=== PATIENT | female | born 1935 | race Caucasian/White ===

== ENCOUNTER 2017-06-17 19:28 | Emergency (ER) | payer MEDICARE, BC ==
--- NOTE | 2017-06-17 19:47 | EDM.PDOC ---
ED HPI GENERAL MEDICAL PROBLEM - General Chief Complaint: Lower Extremity Injury/Pain Stated Complaint: FALL Time Seen by Provider: 06/17/17 19:30 Source of Information: Reports: Patient, EMS History Limitations: Reports: No Limitations - History of Present Illness INITIAL COMMENTS - FREE TEXT/NARRATIVE: 81-year-old female accidentally stepped through a hole in the floor of her home , injuring her right leg. She was stuck there for 5-10 minutes until her son was able to pull her out. He noticed a lot of bruising and injury to the leg and she was unable to bear weight so an ambulance was called. 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 She also has chronic edema. No other injury. Onset: Sudden Duration: Hour(s): (Within the last few hours) Location: Reports: Lower Extremity, Right Severity: Moderate Worsens with: Reports: Other (Weightbearing), Movement Associated Symptoms: Reports: No Other Symptoms right leg Pain Score (Numeric/FACES): 8 - Related Data Allergies Allergy/AdvReac Type Severity Reaction Status Date / Time adhesive Allergy Rash Verified 06/17/17 20:01 Penicillins Allergy Rash Verified 06/17/17 20:01 Sulfa (Sulfonamide Allergy Rash Verified 06/17/17 20:01 Antibiotics) Home Meds: Home Meds Aspirin [[place] Aspirin] 81 mg PO DAILY 11/30/13 [History] Hydrochlorothiazide 25 mg PO DAILY 11/30/13 [History] Insulin Aspart [NovoLOG] 5 units SUBCUT ACBREAKFAST 11/30/13 [History] Lisinopril [Prinivil] 20 mg PO 11/30/13 [History] Simvastatin [Zocor] 20 mg PO BEDTIME 11/30/13 [History] Timolol Maleate [Timoptic 0.5% Ophth Soln] 1 drop EYEBOTH DAILY 11/30/13 [ History] Social & Family History - Tobacco Use Smoking Status *Q: Never Smoker - Alcohol Use Days Per Week of Alcohol Use: 0 - Recreational Drug Use Recreational Drug Use: No Review of Systems - Review of Systems Review Of Systems: See Below Constitutional: Denies: Fever Respiratory: Denies: Shortness of Breath Cardiovascular: Denies: Chest Pain GI/Abdominal: Denies: Abdominal Pain Skin: Reports: Bruising Neurological: Denies: Paresthesia ED EXAM, GENERAL - Physical Exam Exam: See Below Exam Limited By: No Limitations General Appearance: Alert, No Apparent Distress, Other (Patient is fairly comfortable when lying still) Head: Atraumatic Neck: Supple Respiratory/Chest: No Respiratory Distress Extremities: Other (Exam is otherwise limited to the lower extremities. She has a superficial abrasion over the medial aspect of the right leg with some bruising and slight hematoma formation around the back of lower right thigh into the popliteal area. There is very little pain with passive range of motion , no hip discomfort.) Course - Vital Signs Last Recorded V/S: Last Vital Signs Temp 95.8 F 06/17/17 20:17 Pulse 68 06/17/17 23:30 Resp 12 06/17/17 23:30 BP 107/40 L 06/17/17 23:30 Pulse Ox 99 06/17/17 23:30 - Orders/Labs/Meds Orders: Active Orders 24 hr Category Date Time Status Femur Min 2V Rt [CR] Stat Exams 06/17/17 19:31 Taken Head wo Cont [CT] Stat Exams 06/17/17 21:53 Taken Tibia Fibula Rt [CR] Stat Exams 06/17/17 19:30 Taken Labs: Laboratory Tests 06/17/17 06/17/17 Range/Units 21:53 21:53 WBC 14.9 H (4.5-11.0) K/uL RBC 3.75 (3.30-5.50) M/uL Hgb 10.7 L (12.0-15.0) g/dL Hct 34.6 L (36.0-48.0) % MCV 92 (80-98) fL MCH 29 (27-31) pg MCHC 31 L (32-36) % Plt Count 183 (150-400) K/uL Neut % (Auto) 82 H (36-66) % Lymph % (Auto) 10 L (24-44) % [place] % (Auto) 6 (2-6) % Eos % (Auto) 2 (2-4) % Baso % (Auto) 1 (0-1) % Sodium 139 L (140-148) mmol/L Potassium 3.9 (3.6-5.2) mmol/L Chloride 101 (100-108) mmol/L Carbon Dioxide 28 (21-32) mmol/L Anion Gap 13.9 (5.0-14.0) mmol/L BUN 28 H (7-18) mg/dL Creatinine 1.7 H (0.6-1.0) mg/dL Est Cr Clr Drug Dosing 22.79 mL/min Estimated GFR (MDRD) 29 L (>60) Glucose 267 H (74-106) mg/dL Calcium 8.9 (8.5-10.1) mg/dL Total Bilirubin 0.3 (0.2-1.0) mg/dL AST 34 (15-37) U/L ALT 27 (12-78) U/L Alkaline Phosphatase 80 (46-116) U/L Total Protein 6.2 L (6.4-8.2) g/dL Albumin 3.2 L (3.4-5.0) g/dL Globulin 3.0 (2.3-3.5) g/dL Albumin/Globulin Ratio 1.1 L (1.2-2.2) Meds: Medications Discontinued Medications Generic Name Dose Route Start Last Admin Trade Name Freq PRN Reason Stop Dose Admin Hydrocodone Bitart/Acetaminophen 1 tab 06/17/17 20:32 06/17/17 20:51 [place] 325-5 Mg PO 06/17/17 20:33 1 tab ONETIME ONE Administration - Re-Assessments/Exams Free Text/Narrative Re-Assessment/Exam: 06/17/17 20:28 An x-ray of the tib-fib and right femur on the right side were obtained and showed no fracture. The total knee replacement looks to be in place appropriately. Some nonstick dressings were placed over the abrasion and six- inch Kaveh wraps were used to support the lower extremity. The patient will be discharged, we have no beds available for admission so she is going to try for the next few days with the help of her son to ambulate around the house with a walker. She will return if not improving satisfactorily. 06/17/17 23:27 The patient went into the bathroom with assistance prior to being discharged, and had a very intense vasovagal episode where she actually lost consciousness for several minutes. She became very pale and hypotensive. We then moved her back into the room and her blood pressure was only 60 systolic. She also said she was having blurred vision and extreme dizziness. A [id number] glucose was done which was 200. She continued to slowly improve, and a CBC and CMP was drawn as well as a head CT without contrast obtained. The head CT was normal but there was some concerning findings on the CMP, her GFR was only 31 and creatinine 1.6. This was compared with some recent levels drawn in the clinic one month ago, they were similar but much worse than 1 year prior. It appears this patient is having some renal failure from her chronic diabetes which should be assessed as well. We had no beds in our hospital so the hospitalist in [place] was kind enough to accept the patient for observation and stabilization. Departure - Departure Time of Disposition: 00:51 Disposition: Home, Self-Care 01 Condition: Fair Clinical Impression: Leg abrasion, non-infected Contusion of leg, multiple sites Qualifiers: Encounter type: initial encounter Laterality: right Qualified Code(s): S80.11XA - Contusion of right lower leg, initial encounter Syncope Qualifiers: Syncope type: vasovagal syncope Qualified Code(s): R55 - Syncope and collapse - Discharge Information Instructions: Contusion, [id number] Referrals: PCP,None [Primary Care Provider] - Forms: ED Department Discharge Care Plan Goals: Patient will be transferred to [place] for monitoring her vitals, renal function, and pain control for her recent leg injury. - My Orders Last 24 Hours: My Active Orders 06/17/17 19:30 Tibia Fibula Rt [CR] Stat 06/17/17 19:31 Femur Min 2V Rt [CR] Stat 06/17/17 21:53 Head wo Cont [CT] Stat - Assessment/Plan Last 24 Hours: My Active Orders 06/17/17 19:30 Tibia Fibula Rt [CR] Stat 06/17/17 19:31 Femur Min 2V Rt [CR] Stat 06/17/17 21:53 Head wo Cont [CT] Stat
[2017-06-17] MEDS ORDERED: Acetaminophen/HYDROcodone 325-5 MG Tab PO ONE (20:32)
--- NOTE | 2017-06-18 10:19 | CR ---
Mildly limited of the right hip. No evidence for fracture the femur.
--- NOTE | 2017-06-18 10:22 | CR ---
Right TKA. No evidence for fracture.
== END 2017-06-18 00:40 | disposition home or self-care (01) ==
LOC: JP.ED 19:28
DX: S70.11XA Contusion of right thigh, initial encounter (principal); S80.11XA Contusion of right lower leg, initial encounter; R55 Syncope and collapse; Z88.0 Allergy status to penicillin; Z91.09 Other allergy status, other than to drugs and biological substances; Z88.2 Allergy status to sulfonamides; Z79.82 Long term (current) use of aspirin; Z79.4 Long term (current) use of insulin; Z79.899 Other long term (current) drug therapy; W18.09XA Striking against other object with subsequent fall, initial encounter; Y92.009 Unspecified place in unspecified non-institutional (private) residence as the place of occurrence of the external cause
CPT/HCPCS: 36415; 70450; 73552; 73590; 80053; 82962; 85025; 99283; A9270

== ENCOUNTER 2019-10-15 23:16 | Emergency (ER) | payer BC, MEDICARE ==
--- NOTE | 2019-10-15 23:36 | EDM.PDOC ---
ED HPI GENERAL MEDICAL PROBLEM - General Chief Complaint: Diabetic Complaint Stated Complaint: MEDICAL VIA [facility] Time Seen by Provider: 10/15/19 23:27 Source of Information: Reports: Patient, RN Notes Reviewed History Limitations: Reports: No Limitations - History of Present Illness INITIAL COMMENTS - FREE TEXT/NARRATIVE: 84-year-old female presents emergency department today following a fall at home, she states that she believes she might of tripped on the rug fell forward ended up hitting her face right now she is experiencing pain around her nose and in the base of her forehead. She did not lose consciousness. She also admits that she has been having trouble with her metformin she has not taken this medication for 2 weeks and has had poor blood sugar control nose Pain Score (Numeric/FACES): 7 - Related Data Allergies Allergy/AdvReac Type Severity Reaction Status Date / Time adhesive Allergy Rash Verified 10/15/19 23:19 Penicillins Allergy Rash Verified 10/15/19 23:19 Sulfa (Sulfonamide Allergy Rash Verified 10/15/19 23:19 Antibiotics) Home Meds: Home Meds Aspirin [[place] Aspirin] 81 mg PO DAILY 11/30/13 [History] Hydrochlorothiazide 25 mg PO DAILY 11/30/13 [History] Simvastatin [Zocor] 20 mg PO BEDTIME 11/30/13 [History] lisinopriL [Prinivil] 20 mg PO DAILY 11/30/13 [History] timoloL maleate [Timoptic 0.5% Ophth Soln] 1 drop EYEBOTH DAILY 11/30/13 [History] allopurinoL [Zyloprim] 100 mg PO DAILY 10/15/19 [History] metFORMIN HCl [Metformin HCl ER] 500 mg PO BID 10/15/19 [History] Past Medical History HEENT History: Reports: Impaired Vision Cardiovascular History: Reports: High Cholesterol [employer] LE[employer] History: Reports: Musculoskeletal History: Reports: Gout Endocrine/Metabolic History: Reports: Diabetes, Type II, Obesity/BMI 30+ Dermatologic History: Reports: Eczema - Infectious Disease History Infectious Disease History: Reports: Measles - Past Surgical History HEENT Surgical History: Reports: Eye Surgery GI Surgical History: Reports: Appendectomy, Cholecystectomy, Hernia Repair/Other Female Surgical History: Reports: Hysterectomy, Salpingo-Oophorectomy Musculoskeletal Surgical History: Reports: Knee Replacement, Other (See Below) Other Musculoskeletal Surgeries/Procedures:: bilateral knee repalcement Oncologic Surgical History: Reports: Other (See Below) Other Oncologic Surgeries/Procedures: abnormal pap; hystorectomy Social & Family History - Caffeine Use Caffeine Use: Reports: Soda ED ROS GENERAL - Review of Systems Review Of Systems: See Below Constitutional: Reports: No Symptoms HEENT: Reports: Other (Facial pain) Respiratory: Reports: No Symptoms Cardiovascular: Reports: No Symptoms Endocrine: Reports: High Glucose GI/Abdominal: Reports: No Symptoms : Reports: No Symptoms Musculoskeletal: Reports: No Symptoms Skin: Reports: Bruising (Bridge of nose) Neurological: Reports: No Symptoms ED EXAM GENERAL NO PERIP PULSE - Physical Exam Exam: See Below Exam Limited By: No Limitations General Appearance: Alert, WD/WN, No Apparent Distress Nose: Nasal Tenderness Head: Normocephalic, Facial Tenderness Neck: Normal Inspection, Supple, Non-Tender, Full Range of Motion Respiratory/Chest: No Respiratory Distress, Lungs Clear, Normal Breath Sounds, No Accessory Muscle Use, Chest Non-Tender Cardiovascular: Regular Rate, Rhythm, No Murmur GI/Abdominal: Soft, Non-Tender Course - Vital Signs Last Recorded V/S: Last Vital Signs Temp 95.8 F L 10/15/19 23:29 Pulse 79 10/16/19 01:39 Resp 17 10/16/19 01:39 BP 95/41 L 10/16/19 01:39 Pulse Ox 100 10/16/19 01:39 - Orders/Labs/Meds Orders: Active Orders 24 hr Category Date Time Status Bradley Catheter Insertion [Insert Urinary Catheter] [OM. Care 10/16/19 01:30 Ordered PC] Q24H POC Glucose [Blood Glucose Check, Bedside] [RC] ONETIME Care 10/16/19 02:15 Active Urinary Catheter Assessment [RC] ASDIRECTED Care 10/16/19 01:22 Active Chest 1V Frontal [CR] Stat Exams 10/16/19 00:23 Taken CORONAVIRUS COVID-19, ANASTASIIA Stat Lab 10/16/19 01:36 Ordered CULTURE BLOOD [BC] Urgent Lab 10/16/19 00:30 Received CULTURE BLOOD [BC] Urgent Lab 10/16/19 00:35 Received CULTURE URINE [RM] Urgent Lab 10/16/19 00:53 Received Insulin Regular, Human [HumuLIN R] 100 unit Med 10/16/19 01:15 Active Sodium Chloride 0.9% [Normal Saline] 99 ml IV TITRATE Sodium Chloride 0.9% [Normal Saline] 1,000 ml Med 10/16/19 01:15 Active IV ASDIRECTED Sodium Chloride 0.9% [Saline Flush] Med 10/16/19 00:23 Active 10 ml FLUSH ASDIRECTED PRN Vancomycin 1 gm Med 10/16/19 01:00 Active Sodium Chloride 0.9% [Normal Saline] 250 ml IV Q24H Blood Culture x2 Reflex Set [OM.PC] Urgent Oth 10/16/19 00:23 Ordered Saline Lock Insert [OM.PC] Stat Ot 10/16/19 00:23 Ordered Severe Sepsis Onset Time [OM.PC] Stat Ot 10/16/19 00:23 Ordered Medication Orders Vancomycin HCl 1 gm/ Sodium (Chloride) 250 mls @ 150 mls/hr IV Q24H CHRIS Last Admin: 10/16/19 01:41 Dose: 150 mls/hr Documented by: FLORIN Insulin Human Regular 100 unit (/ Sodium Chloride) 100 mls @ 15.989 mls/hr IV TITRATE CHRIS; Protocol Last Admin: 10/16/19 01:18 Dose: 0.15 units/kg/hr, 15.989 mls/hr Documented by: FLORIN Cosigned by: ODILIA Sodium Chloride (Normal Saline) 1,000 mls @ 999 mls/hr IV ASDIRECTED CHRIS Last Admin: 10/16/19 01:14 Dose: 999 mls/hr Documented by: FLORIN Sodium Chloride (Saline Flush) 10 ml FLUSH ASDIRECTED PRN PRN Reason: Keep Vein Open Last Admin: 10/16/19 01:15 Dose: 10 ml Documented by: FLORIN Labs: Laboratory Tests 10/15/19 10/15/19 10/15/19 Range/Units 23:45 23:45 23:45 WBC 10.9 (4.5-11.0) K/uL RBC 4.77 (3.30-5.50) M/uL Hgb 13.2 D (12.0-15.0) g/dL Hct 41.0 (36.0-48.0) % MCV 86 (80-98) fL MCH 28 (27-31) pg MCHC 32 (32-36) % Plt Count 158 (150-400) K/uL Neut % (Auto) 85 H (36-66) % Lymph % (Auto) 7 L (24-44) % [place] % (Auto) 7 H (2-6) % Eos % (Auto) 1 L (2-4) % Baso % (Auto) 1 (0-1) % VBG pH (7.350-7.450) Sodium 120 L (140-148) mmol/L Potassium 4.9 (3.6-5.2) mmol/L Chloride 84 L (100-108) mmol/L Carbon Dioxide 27 (21-32) mmol/L Anion Gap 13.9 (5.0-14.0) mmol/L BUN 54 H D (7-18) mg/dL Creatinine 2.6 H D (0.6-1.0) mg/dL Est Cr Clr Drug Dosing 13.56 mL/min Estimated GFR (MDRD) 18 L (>60) Glucose 1020 H* (74-106) mg/dL Lactic Acid 3.4 H (0.4-2.0) mmol/L Calcium 9.2 (8.5-10.1) mg/dL Total Bilirubin 0.5 D (0.2-1.0) mg/dL AST 23 (15-37) U/L ALT 26 (12-78) U/L Alkaline Phosphatase 127 H (46-116) U/L Total Protein 6.9 (6.4-8.2) g/dL Albumin 3.2 L (3.4-5.0) g/dL Globulin 3.7 H (2.3-3.5) g/dL Albumin/Globulin Ratio 0.9 L (1.2-2.2) Lipase (73-393) U/L Urine Color (YELLOW) Urine Appearance (CLEAR) Urine pH (5.0-8.0) Ur Specific [place] (1.008-1.030) Urine Protein (NEGATIVE) mg/dL Urine Glucose (UA) (NEGATIVE) mg/dL Urine Ketones (NEGATIVE) mg/dL Urine Occult Blood (NEGATIVE) Urine Nitrite (NEGATIVE) Urine Bilirubin (NEGATIVE) Urine Urobilinogen (0.2-1.0) EU/dL Ur Leukocyte Esterase (NEGATIVE) Urine RBC (0-5) Urine WBC (0-5) Ur Epithelial Cells Amorphous Sediment Urine Bacteria Urine Mucus Ketones (NEGATIVE) 10/16/19 10/16/19 10/16/19 Range/Units 00:08 00:23 00:25 WBC (4.5-11.0) K/uL RBC (3.30-5.50) M/uL Hgb (12.0-15.0) g/dL Hct (36.0-48.0) % MCV (80-98) fL MCH (27-31) pg MCHC (32-36) % Plt Count (150-400) K/uL Neut % (Auto) (36-66) % Lymph % (Auto) (24-44) % [place] % (Auto) (2-6) % Eos % (Auto) (2-4) % Baso % (Auto) (0-1) % VBG pH (7.350-7.450) Sodium (140-148) mmol/L Potassium (3.6-5.2) mmol/L Chloride (100-108) mmol/L Carbon Dioxide (21-32) mmol/L Anion Gap (5.0-14.0) mmol/L BUN (7-18) mg/dL Creatinine (0.6-1.0) mg/dL Est Cr Clr Drug Dosing mL/min Estimated GFR (MDRD) (>60) Glucose (74-106) mg/dL Lactic Acid (0.4-2.0) mmol/L Calcium (8.5-10.1) mg/dL Total Bilirubin (0.2-1.0) mg/dL AST (15-37) U/L ALT (12-78) U/L Alkaline Phosphatase (46-116) U/L Total Protein (6.4-8.2) g/dL Albumin (3.4-5.0) g/dL Globulin (2.3-3.5) g/dL Albumin/Globulin Ratio (1.2-2.2) Lipase 765 H (73-393) U/L Urine Color Yellow (YELLOW) Urine Appearance Slightly cloudy A (CLEAR) Urine pH 5.5 (5.0-8.0) Ur Specific [place] 1.010 (1.008-1.030) Urine Protein Negative (NEGATIVE) mg/dL Urine Glucose (UA) 500 H (NEGATIVE) mg/dL Urine Ketones Negative (NEGATIVE) mg/dL Urine Occult Blood Small H (NEGATIVE) Urine Nitrite Positive H (NEGATIVE) Urine Bilirubin Negative (NEGATIVE) Urine Urobilinogen 0.2 (0.2-1.0) EU/dL Ur Leukocyte Esterase Trace H (NEGATIVE) Urine RBC 0-5 (0-5) Urine WBC 50-75 H (0-5) Ur Epithelial Cells Few Amorphous Sediment Not seen Urine Bacteria Many Urine Mucus Not seen Ketones Negative (NEGATIVE) 10/16/19 Range/Units 00:40 WBC (4.5-11.0) K/uL RBC (3.30-5.50) M/uL Hgb (12.0-15.0) g/dL Hct (36.0-48.0) % MCV (80-98) fL MCH (27-31) pg MCHC (32-36) % Plt Count (150-400) K/uL Neut % (Auto) (36-66) % Lymph % (Auto) (24-44) % [place] % (Auto) (2-6) % Eos % (Auto) (2-4) % Baso % (Auto) (0-1) % VBG pH 7.392 (7.350-7.450) Sodium (140-148) mmol/L Potassium (3.6-5.2) mmol/L Chloride (100-108) mmol/L Carbon Dioxide (21-32) mmol/L Anion Gap (5.0-14.0) mmol/L BUN (7-18) mg/dL Creatinine (0.6-1.0) mg/dL Est Cr Clr Drug Dosing mL/min Estimated GFR (MDRD) (>60) Glucose (74-106) mg/dL Lactic Acid (0.4-2.0) mmol/L Calcium (8.5-10.1) mg/dL Total Bilirubin (0.2-1.0) mg/dL AST (15-37) U/L ALT (12-78) U/L Alkaline Phosphatase (46-116) U/L Total Protein (6.4-8.2) g/dL Albumin (3.4-5.0) g/dL Globulin (2.3-3.5) g/dL Albumin/Globulin Ratio (1.2-2.2) Lipase (73-393) U/L Urine Color (YELLOW) Urine Appearance (CLEAR) Urine pH (5.0-8.0) Ur Specific [place] (1.008-1.030) Urine Protein (NEGATIVE) mg/dL Urine Glucose (UA) (NEGATIVE) mg/dL Urine Ketones (NEGATIVE) mg/dL Urine Occult Blood (NEGATIVE) Urine Nitrite (NEGATIVE) Urine Bilirubin (NEGATIVE) Urine Urobilinogen (0.2-1.0) EU/dL Ur Leukocyte Esterase (NEGATIVE) Urine RBC (0-5) Urine WBC (0-5) Ur Epithelial Cells Amorphous Sediment Urine Bacteria Urine Mucus Ketones (NEGATIVE) Meds: Medications Generic Name Dose Route Start Last Admin Trade Name Elke PRN Reason Stop Dose Admin Vancomycin HCl 1 gm/ Sodium 250 mls @ 150 mls/hr 10/16/19 01:00 10/16/19 01:41 Chloride IV 150 mls/hr Q24H CHRIS Administration Insulin Human Regular 100 unit 100 mls @ 15.989 mls/hr 10/16/19 01:15 10/16/19 01:18 / Sodium Chloride IV 0.15 units/kg/hr TITRATE CHRIS 15.989 mls/hr Administration Protocol 0.15 UNITS/KG/HR Sodium Chloride 1,000 mls @ 999 mls/hr 10/16/19 01:15 10/16/19 01:14 Normal Saline IV 999 mls/hr ASDIRECTED CHRIS Administration Sodium Chloride 10 ml 10/16/19 00:23 10/16/19 01:15 Saline Flush FLUSH 10 ml ASDIRECTED PRN Administration Keep Vein Open Discontinued Medications Generic Name Dose Route Start Last Admin Trade Name Elke PRN Reason Stop Dose Admin Ceftriaxone Sodium 1 gm/ 50 mls @ 100 mls/hr 10/16/19 00:23 10/16/19 00:59 Sodium Chloride IV 10/16/19 00:52 100 mls/hr STAT ONE Administration Lactated Ringer's 1,000 mls @ 999 mls/hr 10/16/19 00:51 10/16/19 00:59 Ringers, Lactated IV 10/16/19 01:51 999 mls/hr BOLUS ONE Administration Departure - Departure Time of Disposition: 02:08 Disposition: DC/Tfer to Acute Hospital 02 Condition: Fair Clinical Impression: Non-ketotic hypoglycemia - Discharge Information Referrals: PCP,None [Primary Care Provider] - Forms: ED Department Discharge Critical Care Note - Critical Care Note Total Time (mins): 20 Sepsis Event Note (ED) - Evaluation Sepsis Screening Result: No Definite Risk - Focused Exam Vital Signs: Vital Signs Temp Pulse Resp BP Pulse Ox 10/16/19 01:39 79 17 95/41 L 100 10/16/19 01:06 76 14 83/43 L 99 10/16/19 00:50 81 18 82/36 L 98 10/16/19 00:00 81 20 130/61 100 10/15/19 23:29 95.8 F L 77 14 115/51 L 97 10/15/19 23:28 95.8 F L 77 14 115/51 L 97 - My Orders Last 24 Hours: My Active Orders 10/16/19 00:23 Chest 1V Frontal [CR] Stat Sodium Chloride 0.9% [Saline Flush] 10 ml FLUSH ASDIRECTED PRN Blood Culture x2 Reflex Set [OM.PC] Urgent Saline Lock Insert [OM.PC] Stat Severe Sepsis Onset Time [OM.PC] Stat 10/16/19 00:30 CULTURE BLOOD [BC] Urgent 10/16/19 00:35 CULTURE BLOOD [BC] Urgent 10/16/19 00:53 CULTURE URINE [RM] Urgent 10/16/19 01:00 Vancomycin 1 gm Sodium Chloride 0.9% [Normal Saline] 250 ml IV Q24H 10/16/19 01:15 Insulin Regular, Human [HumuLIN R] 100 unit Sodium Chloride 0.9% [Normal Saline] 99 ml IV TITRATE Sodium Chloride 0.9% [Normal Saline] 1,000 ml IV ASDIRECTED 10/16/19 01:22 Urinary Catheter Assessment [RC] ASDIRECTED 10/16/19 01:30 Bradley Catheter Insertion [Insert Urinary Catheter] [OM.PC] Q24H 10/16/19 01:36 CORONAVIRUS COVID-19, ANASTASIIA Stat 10/16/19 02:15 POC Glucose [Blood Glucose Check, Bedside] [RC] ONETIME - Assessment/Plan Last 24 Hours: My Active Orders 10/16/19 00:23 Chest 1V Frontal [CR] Stat Sodium Chloride 0.9% [Saline Flush] 10 ml FLUSH ASDIRECTED PRN Blood Culture x2 Reflex Set [OM.PC] Urgent Saline Lock Insert [OM.PC] Stat Severe Sepsis Onset Time [OM.PC] Stat 10/16/19 00:30 CULTURE BLOOD [BC] Urgent 10/16/19 00:35 CULTURE BLOOD [BC] Urgent 10/16/19 00:53 CULTURE URINE [RM] Urgent 10/16/19 01:00 Vancomycin 1 gm Sodium Chloride 0.9% [Normal Saline] 250 ml IV Q24H 10/16/19 01:15 Insulin Regular, Human [HumuLIN R] 100 unit Sodium Chloride 0.9% [Normal Saline] 99 ml IV TITRATE Sodium Chloride 0.9% [Normal Saline] 1,000 ml IV ASDIRECTED 10/16/19 01:22 Urinary Catheter Assessment [RC] ASDIRECTED 10/16/19 01:30 Bradley Catheter Insertion [Insert Urinary Catheter] [OM.PC] Q24H 10/16/19 01:36 CORONAVIRUS COVID-19, ANASTASIIA Stat 10/16/19 02:15 POC Glucose [Blood Glucose Check, Bedside] [RC] ONETIME Plan: Assessment Acuity = acute Site and laterality = hyperosmotic hyperglycemic nonketotic syndrome Etiology = secondary to medical compliance Manifestations = none Location of injury = Home Lab values = CBC unremarkable pH 7.39 sodium low at 129 corrected creatinine elevated 2.6 consistent with acute renal failure stage G4 glucose elevated 1020 consistent with hyperglycemia lactic acid elevated 3.4 consistent with lactic acidosis lipase elevated 765 urinalysis reveals positive nitrates 50-75 WBCs consistent with pyuria negative ketones blood cultures pending urine cultures pending CT scan of the head is negative CT scan maxillofacial bones show minimally displaced nasal bone fracture Plan Call discussed case Dr. Govea emergency room physician [facility] at 205 can accept the patient in transport she will be transported via EMS ground thus far she is received 1 g Rocephin 1 g vancomycin 2 L of fluid started on insulin drip second blood sugars pending This note was dictated using [employer] voice recognition software please call with any questions on syntax or grammar.
[2019-10-16] MEDS ORDERED: Sodium Chloride 0.9% 10 ML Syringe FLUSH PRN (00:23)
[2019-10-16] MEDS ORDERED: cefTRIAXone 1 GM in Sodium Chloride 0.9% 50 ML IV ONE (00:23)
[2019-10-16] MEDS ORDERED: Lactated Ringers 1,000 ML IV ONE (00:51)
[2019-10-16] MEDS ORDERED: Sodium Chloride 0.9% 1,000 ML IV SCH (01:15)
--- NOTE | 2019-10-16 01:30 | CRLCT ---
Clinical INDICATION: Fall. Head injury. TECHNIQUE: Axial CT cuts were performed from the skull base to the vertex. FINDINGS: There is advanced cerebral atrophy. There is no intracranial mass, hemorrhage, infarction or contusion. There is no midline shift or transtentorial herniation. The calvarium is intact. Visualized paranasal sinuses appear normal. There is a 3 mm metallic density foreign body adjacent to the anterior superior aspect of the left globe. The orbits otherwise appear normal. IMPRESSION: 1. No acute intracranial abnormality. 2. Advanced cerebral atrophy. 3. There is a 3 mm metallic density foreign body at the superior margin of the left globe. Please note that all CT scans at this facility use dose modulation, iterative reconstruction, and/or weight-based dosing when appropriate to reduce radiation dose to as low as reasonably achievable. Dictated by Anirudh Ann MD @ Oct 16 2019 1:25AM Signed by Dr. Anirudh Ann @ Oct 16 2019 1:27AM
--- NOTE | 2019-10-16 01:50 | CRLCT ---
INDICATION: Fall with pain TECHNIQUE: CT maxillofacial without contrast. COMPARISON: None FINDINGS: Facial bones: There is a minimally displaced right nasal bone fracture. Orbits and globes: There is a 1.4 mm high-density metallic foreign body within the anterior aspect of the right globe. Sinuses: No acute or significant findings. Soft tissues: Unremarkable. IMPRESSION: Minimally displaced right nasal bone fracture. This is of unknown age. Correlate with focal pain or tenderness in this region. 1.4 mm high-density metallic foreign body within the anterior aspect of the right globe, likely remote in nature. Please note that all CT scans at this facility use dose modulation, iterative reconstruction, and/or weight-based dosing when appropriate to reduce radiation dose to as low as reasonably achievable. Dictated by Mónica Rico MD @ Oct 16 2019 1:48AM Signed by Dr. Mónica Rico @ Oct 16 2019 1:48AM
[2019-10-16] MEDS ORDERED: Zinc Oxide 20% Oint 453.6 GM Jar TOP PRN (02:17)
[2019-10-16] MEDS ORDERED: Dimethicone 20%/Zinc Oxide 25% 56 GM Spray Bottle TOP PRN (02:59)
--- NOTE | 2019-10-16 11:40 | CR ---
CHEST: Portable 10/16/2019 at 1:37 AM CLINICAL HISTORY:Cough COMPARISON:None FINDINGS: The heart size, pulmonary vascularity and hilar structures are normal. No infiltrate effusion or pneumothorax is seen. There are atherosclerotic changes in the aorta. IMPRESSION: No acute cardiopulmonary process.
== END 2019-10-16 03:10 ==
LOC: JP.ED 23:16
DX: E11.649 Type 2 diabetes mellitus with hypoglycemia without coma (principal); E78.00 Pure hypercholesterolemia, unspecified; M10.9 Gout, unspecified; E66.9 Obesity, unspecified; Z68.41 Body mass index [BMI] 40.0-44.9, adult; Z91.048 Other nonmedicinal substance allergy status; Z88.0 Allergy status to penicillin; Z88.2 Allergy status to sulfonamides; Z79.82 Long term (current) use of aspirin; Z79.899 Other long term (current) drug therapy; Z79.84 Long term (current) use of oral hypoglycemic drugs; W01.10XA Fall on same level from slipping, tripping and stumbling with subsequent striking against unspecified object, initial encounter
CPT/HCPCS: 36415; 51702; 70450; 70486; 71045; 80053; 81001; 82009; 82800; 82947; 83605; 83690; 85025; 87040; 87086; 87088; 87186; 96365; 96367; 99285; A9270; J0696; J1815; J3370; J7030; J7050; J7120

== ENCOUNTER 2024-04-07 09:15 | Day surgery (SDC) | payer MEDICARE ==
[~2024-04-07 09:15] MED LIST: Propofol 200 MG/20 ML SDV ONE
[2024-04-07] MEDS: Lactated Ringers 1,000 ML IV SCH (10:20)
== END 2024-04-07 12:00 | disposition home or self-care (01) ==
LOC: JP.SDS 09:15
PROVIDERS: ATTEND Surgery
DX: K22.70 Barrett's esophagus without dysplasia (principal); K22.5 Diverticulum of esophagus, acquired; D64.9 Anemia, unspecified; I10 Essential (primary) hypertension; E11.9 Type 2 diabetes mellitus without complications
CPT/HCPCS: 00731-QZ; 82947; J2704; J7120

== ENCOUNTER 2024-05-20 06:33 | Inpatient (IN) | payer MEDICARE ==
[2024-05-20] MEDS: Metoprolol Tartrate 5 MG/5 ML SDV IVPUSH ONE (07:11)
[2024-05-20] MEDS: Sodium Chloride 0.9% 500 ML IV ONE ×2 (07:17→08:07)
[2024-05-20 07:22] LABS: BASOPHILS ABSOLUTE AUTO 0.05 K/uL (0.00-0.10); BASOPHILS PERCENT AUTO 0.4 % (0.1-1.3); EOSINOPHILS ABSOLUTE AUTO 0.22 K/uL (0.00-0.40); EOSINOPHILS PERCENT AUTO 1.9 % (0.0-5.4); HEMATOCRIT 36.5 % (34.3-46.0); HEMOGLOBIN 10.9 g/dL (11.2-15.5); IMMATURE GRAN ABSOLUTE AUTO 0.14 K/uL (0.00-0.23); IMMATURE GRAN PERCENT AUTO 1.2 % (0.0-0.7); LYMPHOCYTES ABSOLUTE AUTO 0.95 K/uL (0.8-3.3); LYMPHOCYTES PERCENT AUTO 8.2 % (11.4-47.7); MEAN CORPUSCULAR HEMOGLOBIN 25.5 pg (31.6-35.5); MEAN CORPUSCULAR HGB CONC 29.9 g/dL (31.6-35.5); MEAN CORPUSCULAR VOLUME 85.3 fL (81.4-99.0); MONOCYTES ABSOLUTE AUTO 0.78 K/uL (0.20-0.90); MONOCYTES PERCENT AUTO 6.7 % (3.3-12.6); NEUTROPHILS ABSOLUTE AUTO 9.46 K/uL (1.0-7.6); NEUTROPHILS PERCENT AUTO 81.6 % (40.0-78.1); PLATELET COUNT,PLT 160 K/uL (130-375); RED BLOOD CELL COUNT 4.28 M/uL (3.77-5.24); WHITE BLOOD CELL COUNT,WBC 11.6 K/uL (3.2-11.0)
[2024-05-20 07:46] LABS: A/G RATIO 0.6 (1.2-2.2); ALANINE AMINOTRANSFERASE,ALT 15 U/L (12-78); ALBUMIN 2.6 g/dL (3.4-5.0); ALKALINE PHOSPHATASE 182 U/L (46-116); ANION GAP 12.3 mmol/L (5.0-14.0); ASPARTATE AMNIOTRANSFERASE,AST 28 U/L (15-37); BILIRUBIN TOTAL 0.5 mg/dL (0.2-1.0); BLOOD UREA NITROGEN,BUN 35 mg/dL (7-18); CALCIUM 8.6 mg/dL (8.5-10.1); CARBON DIOXIDE,CO2 29 mmol/L (21-32); CHLORIDE,CL 98 mmol/L (100-108); EST CRCL DRUG DOSING (CG) 16.39 mL/min; ESTIMATED GFR 24 mL/min (>60); GLUCOSE RANDOM 236 mg/dL (74-106); POTASSIUM,K 3.3 mmol/L (3.6-5.2); PROTEIN TOTAL,TP 6.8 g/dL (6.4-8.2); SODIUM,NA 136 mmol/L (140-148); TROPONIN I HIGH SENSITIVITY 16.1 pg/mL (<=60.3)
[2024-05-20 08:28] LABS: APPEARANCE,URINE TURBID (CLEAR); BILIRUBIN,URINE NEGATIVE (NEGATIVE); COLOR,URINE YELLOW (YELLOW); GLUCOSE,URINE NEGATIVE (NEGATIVE); KETONES,URINE NEGATIVE (NEGATIVE); LEUKOCYTE ESTERASE,URINE LARGE (NEGATIVE); NITRITE,URINE NEGATIVE (NEGATIVE); OCCULT BLOOD,URINE TRACE-INTACT (NEGATIVE); PH,URINE 8.5 (5.0-8.0); PROTEIN,URINE 30 mg/dL (NEGATIVE); UROBILINOGEN,URINE 0.2 EU/dL (0.2-1.0)
[2024-05-20 08:37] LABS: AMORPHOUS SEDIMENT,URINE NOT SEEN; BACTERIA,URINE MANY; EPITHELIAL CELLS,URINE MODERATE; MUCUS,URINE NOT SEEN; WBC,URINE 50-75 (0-5)
[2024-05-20] MEDS: cefTRIAXone 2 GM in Sodium Chloride 0.9% 50 ML IV ONE (09:10)
[2024-05-20] MEDS: Potassium Chloride 10 MEQ in Premix Bag 1 BAG IV ONE (09:13)
[2024-05-20] MEDS: Azithromycin 500 MG in Sodium Chloride 0.9% 250 ML IV SCH (09:39)
[2024-05-20] MEDS: Magnesium Sulf/Wat 2 GM/50 mL 2 GM in Premix Bag 1 BAG IV ONE (09:47)
[2024-05-20] MEDS ORDERED: Glucagon,Human Recombinant 1 MG Vial IM PRN (11:06)
[2024-05-20] MEDS ORDERED: Polyethylene Glycol 3350 Powder 17 GM Packet PO PRN (11:06)
[2024-05-20] MEDS ORDERED: Ondansetron 4 MG/2 ML SDV IV PRN (11:06)
[2024-05-20] MEDS ORDERED: Glucose Gel 15 GM in 37.5 GM Tube PO PRN (11:06)
[2024-05-20] MEDS ORDERED: 50% Dextrose in Water 50 ML Syringe IV PRN (11:06)
[2024-05-20] MEDS ORDERED: 50% Dextrose in Water 50 ML Syringe IVPUSH PRN (11:06)
[2024-05-20] MEDS ORDERED: Sodium Chloride 0.9% 10 ML Syringe FLUSH PRN (11:06)
[2024-05-20] MEDS ORDERED: Acetaminophen 325 MG Tab PO PRN (11:06)
[2024-05-20] MEDS: Sodium Chloride 0.9% 1,000 ML IV SCH (11:30)
[2024-05-20] MEDS: Digoxin 500 MCG/2 ML Amp IVPUSH ONE (11:55)
[2024-05-20] MEDS: Potassium Chloride 20 MEQ Tab.ER PO ONE ×2 (12:18→16:56)
[2024-05-20] MEDS: Magnesium Oxide 400 MG Tab PO SCH (12:18)
[2024-05-20] MEDS: oxyCODONE 5 MG Tab PO PRN (12:19)
[2024-05-20] MEDS: Insulin Lispro 100 Unit/ML 3 ML KwikPen SUBCUT SCH (12:20)
[2024-05-20] MEDS: Magnesium Sulf/Wat 2 GM/50 mL 2 GM in Premix Bag 1 BAG IV SCH (15:42)
[2024-05-20] MEDS ORDERED: Polymyxin B/Trimethoprim 10 ML Bottle EYERT SCH (16:00)
[2024-05-20] MEDS: Hypromellose 0.3% Ophth Soln 15 ML Bottle EYEBOTH SCH (16:55)
[2024-05-20] MEDS: Pantoprazole 40 MG Tab.CR PO SCH (16:56)
[2024-05-20] MEDS: Rivaroxaban 10 MG Tab PO SCH (16:57)
[2024-05-20] MEDS ORDERED: Insulin Glargine,Human Rec. Analog 100 Units/ML 3 ML Pen SUBCUT SCH (21:00)
[2024-05-20] MEDS ORDERED: Non-Formulary Medication 1 Each (Simvastatin [Zocor] 20 MG Tablet) PO SCH (21:00)
[2024-05-20] MEDS: atorvaSTATin 10 MG Tab PO SCH (21:25)
[2024-05-20] MEDS: Latanoprost 0.005% Ophth Soln 2.5 ML Bottle EYEBOTH SCH (21:26)
[2024-05-20] MEDS: Insulin Glargine,Human Rec. Analog 100 Units/ML 3 ML Pen SUBCUT SCH (21:33)
[2024-05-21 05:56] LABS: HEMATOCRIT 30.6 % (34.3-46.0); HEMOGLOBIN 9.2 g/dL (11.2-15.5); MEAN CORPUSCULAR HEMOGLOBIN 25.7 pg (31.6-35.5); MEAN CORPUSCULAR HGB CONC 30.1 g/dL (31.6-35.5); MEAN CORPUSCULAR VOLUME 85.5 fL (81.4-99.0); RED BLOOD CELL COUNT 3.58 M/uL (3.77-5.24); WHITE BLOOD CELL COUNT,WBC 9.4 K/uL (3.2-11.0)
[2024-05-21 06:25] LABS: CALCIUM 8.7 mg/dL (8.5-10.1); CREATININE 1.7 mg/dL (0.6-1.0); EST CRCL DRUG DOSING (CG) 19.28 mL/min; MAGNESIUM 3.4 mg/dL (1.8-2.4); POTASSIUM,K 4.7 mmol/L (3.6-5.2)
[2024-05-21 06:26] LABS: ANION GAP 9.7 mmol/L (5.0-14.0); DIGOXIN 0.28 ng/mL (0.90-2.00); TSH ULTRASENSITIVE 2.448 uIU/mL (0.358-3.740)
[2024-05-21] MEDS: Insulin Glargine,Human Rec. Analog 100 Units/ML 3 ML Pen SUBCUT SCH (07:45)
[2024-05-21] MEDS: Potassium Chloride 20 MEQ Tab.ER PO SCH (08:46)
[2024-05-21] MEDS: Furosemide 20 MG Tab PO SCH (08:46)
[2024-05-21] MEDS: Allopurinol 100 MG Tab PO SCH (08:47)
[2024-05-21] MEDS ORDERED: Non-Formulary Medication 1 Each (Potassium Chloride [Potassium Chloride] 20 MEQ Tablet.Er) PO SCH (09:00)
[2024-05-21] MEDS ORDERED: Rivaroxaban 10 MG Tab PO SCH (09:00)
[2024-05-21] MEDS ORDERED: Non-Formulary Medication 1 Each (Rivaroxaban [Xarelto] 20 MG Tablet) PO SCH (09:00)
[2024-05-21] MEDS: cefTRIAXone 1 GM in Sodium Chloride 0.9% 50 ML IV SCH (10:41)
[2024-05-21] MEDS: Rivaroxaban 15 MG Tab PO SCH (16:56)
[2024-05-22 05:45] LABS: HEMATOCRIT 30.4 % (34.3-46.0); HEMOGLOBIN 9.1 g/dL (11.2-15.5); MEAN CORPUSCULAR HEMOGLOBIN 25.8 pg (31.6-35.5); MEAN CORPUSCULAR HGB CONC 29.9 g/dL (31.6-35.5); MEAN CORPUSCULAR VOLUME 86.1 fL (81.4-99.0); RED BLOOD CELL COUNT 3.53 M/uL (3.77-5.24)
[2024-05-22 06:02] LABS: CALCIUM 8.6 mg/dL (8.5-10.1); CREATININE 1.5 mg/dL (0.6-1.0); EST CRCL DRUG DOSING (CG) 21.85 mL/min; POTASSIUM,K 4.6 mmol/L (3.6-5.2)
[2024-05-22 06:20] LABS: ANION GAP 10.6 mmol/L (5.0-14.0)
[2024-05-22] MEDS: Cephalexin 250 MG Cap PO SCH (09:01)
[2024-05-22] MEDS: Insulin Lispro 100 Unit/ML 3 ML KwikPen SUBCUT SCH (11:46)
== END 2024-05-23 11:03 | DRG 534 ==
LOC: JP.ED 06:33 → JP.MS 10:24
PROVIDERS: ADMIT Hospitalist; ATTEND Internal Medicine
DX: A41.9 Sepsis, unspecified organism (principal); J18.9 Pneumonia, unspecified organism; S72.434A Nondisplaced fracture of medial condyle of right femur, initial encounter for closed fracture; N30.00 Acute cystitis without hematuria; W18.30XA Fall on same level, unspecified, initial encounter; I48.91 Unspecified atrial fibrillation; H40.9 Unspecified glaucoma; E11.9 Type 2 diabetes mellitus without complications; H26.9 Unspecified cataract; Z96.653 Presence of artificial knee joint, bilateral; E87.6 Hypokalemia; E11.22 Type 2 diabetes mellitus with diabetic chronic kidney disease; Z91.048 Other nonmedicinal substance allergy status; N18.32 Chronic kidney disease, stage 3b; I48.0 Paroxysmal atrial fibrillation; Z68.34 Body mass index [BMI] 34.0-34.9, adult; B96.29 Other Escherichia coli [E. coli] as the cause of diseases classified elsewhere; E83.42 Hypomagnesemia; E86.0 Dehydration; R79.89 Other specified abnormal findings of blood chemistry; E78.00 Pure hypercholesterolemia, unspecified; M10.9 Gout, unspecified; E66.9 Obesity, unspecified; Z68.36 Body mass index [BMI] 36.0-36.9, adult; Z90.49 Acquired absence of other specified parts of digestive tract; Y93.9 Activity, unspecified; Y92.9 Unspecified place or not applicable; Z87.81 Personal history of (healed) traumatic fracture; Z91.81 History of falling; Z79.02 Long term (current) use of antithrombotics/antiplatelets; Z79.01 Long term (current) use of anticoagulants; Z79.899 Other long term (current) drug therapy; Z79.1 Long term (current) use of non-steroidal anti-inflammatories (NSAID); Z79.2 Long term (current) use of antibiotics; Z88.0 Allergy status to penicillin; Z88.2 Allergy status to sulfonamides; Z88.9 Allergy status to unspecified drugs, medicaments and biological substances; Z98.890 Other specified postprocedural states; Z90.710 Acquired absence of both cervix and uterus
CPT/HCPCS: 36415; 71045; 73562 ×2; 80053; 81001; 83605; 83735; 83880; 84484; 85025; 85379; 87040 ×2; 87086; 87088; 87186; 87428; 93005 ×2; 96361; 96365; 96367; 96368; 96375; 99285; J0456; J0696; J3475; J3480; J3490; J7050; 73560-26-RT; 73560-RT; 73600-26-RT; 73600-RT; 73700-RT; 80048; 80162; 82947; 84443; 85027; 97161-GP; 97165-GO; 99222; 99232; 99239; A9270-GY; J1815; J1815-GY; J7030

== ENCOUNTER 2024-11-21 22:51 | Inpatient (IN) | payer MEDICARE ==
[2024-11-21 23:10] LABS: BASOPHILS ABSOLUTE AUTO 0.10 K/uL (0.00-0.10); BASOPHILS PERCENT AUTO 0.9 % (0.1-1.3); EOSINOPHILS ABSOLUTE AUTO 0.71 K/uL (0.00-0.40); EOSINOPHILS PERCENT AUTO 6.4 % (0.0-5.4); IMMATURE GRAN ABSOLUTE AUTO 0.05 K/uL (0.00-0.23); IMMATURE GRAN PERCENT AUTO 0.5 % (0.0-0.7); LYMPHOCYTES ABSOLUTE AUTO 3.67 K/uL (0.8-3.3); LYMPHOCYTES PERCENT AUTO 33.2 % (11.4-47.7); MONOCYTES ABSOLUTE AUTO 1.07 K/uL (0.20-0.90); MONOCYTES PERCENT AUTO 9.7 % (3.3-12.6); NEUTROPHILS ABSOLUTE AUTO 5.47 K/uL (1.0-7.6); NEUTROPHILS PERCENT AUTO 49.3 % (40.0-78.1); PLATELET COUNT,PLT 189 K/uL (130-375); WHITE BLOOD CELL COUNT,WBC 11.1 K/uL (3.2-11.0)
[2024-11-21] MEDS: Ondansetron 4 MG/2 ML SDV IVPUSH ONE (23:20)
[2024-11-21 23:28] LABS: LACTIC ACID 2.6 mmol/L (0.4-2.0)
[2024-11-21 23:35] LABS: A/G RATIO 0.9 (1.2-2.2); ALANINE AMINOTRANSFERASE,ALT 24 U/L (12-78); ASPARTATE AMNIOTRANSFERASE,AST 28 U/L (15-37); BILIRUBIN TOTAL 0.2 mg/dL (0.2-1.0); BLOOD UREA NITROGEN,BUN 18 mg/dL (7-18); CARBON DIOXIDE,CO2 29 mmol/L (21-32); CHLORIDE,CL 105 mmol/L (100-108); CREATININE 1.6 mg/dL (0.6-1.0); EST CRCL DRUG DOSING (CG) 20.10 mL/min; ESTIMATED GFR 31 mL/min (>60); GLUCOSE RANDOM 105 mg/dL (74-106); POTASSIUM,K 3.6 mmol/L (3.6-5.2); PROTEIN TOTAL,TP 6.7 g/dL (6.4-8.2); SODIUM,NA 143 mmol/L (140-148); TROPONIN I HIGH SENSITIVITY 10.7 pg/mL (<=60.3)
[2024-11-21 23:40] LABS: RED BLOOD CELL COUNT 3.59 M/uL (3.77-5.24)
[2024-11-22] MEDS: Norepinephrine Bit/D5W Premix 4 MG in Premix Bag 1 BAG IV SCH (01:55)
[2024-11-22] MEDS: Norepinephrine Bit/D5W Premix 250 ML ONE (01:57)
[2024-11-22] MEDS: Iopamidol 612 MG/ML 100 ML Bottle IV SCH (02:46)
[2024-11-22] MEDS: Sodium Chloride 0.9% 10 ML Syringe FLUSH PRN (02:46)
[2024-11-22] MEDS: Metoprolol Tartrate 5 MG/5 ML SDV IVPUSH ONE (04:10)
[2024-11-22 08:02] LABS: APPEARANCE,URINE SLIGHTLY CLOUDY (CLEAR); GLUCOSE,URINE NEGATIVE (NEGATIVE); OCCULT BLOOD,URINE SMALL (NEGATIVE)
[2024-11-22 08:28] LABS: SQUAMOUS EPITHELIAL CELLS,UR FEW /HPF; UROTHELIAL CELLS,URINE NOT SEEN /HPF
[2024-11-22] MEDS ORDERED: Magnesium Hydroxide 400 MG/5 ML Susp 30 ML Cup PO PRN (12:42)
[2024-11-22] MEDS: Magnesium Sulfate 2 GM/50 mL 2 GM in Premix Bag 1 BAG IV SCH (14:21)
[2024-11-22] MEDS: Hypromellose 0.3% Ophth Soln 15 ML Bottle EYEBOTH SCH (16:44)
[2024-11-22] MEDS: Insulin Lispro 100 Unit/ML 3 ML KwikPen SUBCUT SCH (16:49)
[2024-11-22] MEDS: Lactobacillus Rhamnosus GG (Probiotic) Cap PO SCH (21:06)
[2024-11-22] MEDS: Insulin Glargine,Human Rec. Analog 100 Units/ML 3 ML Pen SUBCUT SCH (21:26)
[2024-11-23 05:53] LABS: PLATELET COUNT,PLT 140.0 K/uL (130-375); WHITE BLOOD CELL COUNT,WBC 9.0 K/uL (3.2-11.0)
[2024-11-23 06:13] LABS: BLOOD UREA NITROGEN,BUN 19.0 mg/dL (7-18); CARBON DIOXIDE,CO2 26.0 mmol/L (21-32); CHLORIDE,CL 108.0 mmol/L (100-108); POTASSIUM,K 4.6 mmol/L (3.6-5.2); SODIUM,NA 141.0 mmol/L (140-148)
[2024-11-23 06:27] LABS: RED BLOOD CELL COUNT 3.1 M/uL (3.77-5.24)
[2024-11-23 06:48] LABS: CREATININE 1.7 mg/dL (0.6-1.0); EST CRCL DRUG DOSING (CG) 18.92 mL/min; ESTIMATED GFR 29.0 mL/min (>60); GLUCOSE RANDOM 162.0 mg/dL (74-106)
[2024-11-23] MEDS: Ondansetron 4 MG Tab.DIS PO PRN (14:51)
[2024-11-23] MEDS: Prochlorperazine 10 MG/2 ML SDV IVPUSH PRN (17:43)
[2024-11-24 05:40] LABS: PLATELET COUNT,PLT 113.0 K/uL (130-375); RED BLOOD CELL COUNT 2.8 M/uL (3.77-5.24); WHITE BLOOD CELL COUNT,WBC 7.1 K/uL (3.2-11.0)
[2024-11-24 05:54] LABS: BLOOD UREA NITROGEN,BUN 18.0 mg/dL (7-18); CARBON DIOXIDE,CO2 26.0 mmol/L (21-32); CHLORIDE,CL 110.0 mmol/L (100-108); CREATININE 1.3 mg/dL (0.6-1.0); EST CRCL DRUG DOSING (CG) 24.74 mL/min; ESTIMATED GFR 40.0 mL/min (>60); GLUCOSE RANDOM 125.0 mg/dL (74-106); POTASSIUM,K 4.1 mmol/L (3.6-5.2); SODIUM,NA 142.0 mmol/L (140-148)
[2024-11-24] MEDS: Sennosides/Docusate Sodium 50-8.6 MG Tab PO PRN (09:57)
[2024-11-24] MEDS: Nystatin Topical Powder 15 GM Bottle TOP SCH (09:57)
[2024-11-24] MEDS: Ondansetron 4 MG/2 ML SDV IV PRN (22:05)
[2024-11-25 05:50] LABS: PLATELET COUNT,PLT 120.0 K/uL (130-375); RED BLOOD CELL COUNT 3.29 M/uL (3.77-5.24); WHITE BLOOD CELL COUNT,WBC 8.3 K/uL (3.2-11.0)
[2024-11-25 06:07] LABS: BLOOD UREA NITROGEN,BUN 16.0 mg/dL (7-18); CARBON DIOXIDE,CO2 26.0 mmol/L (21-32); CHLORIDE,CL 109.0 mmol/L (100-108); CREATININE 1.4 mg/dL (0.6-1.0); EST CRCL DRUG DOSING (CG) 22.98 mL/min; ESTIMATED GFR 36.0 mL/min (>60); GLUCOSE RANDOM 132.0 mg/dL (74-106); POTASSIUM,K 4.2 mmol/L (3.6-5.2); SODIUM,NA 140.0 mmol/L (140-148)
[2024-11-25] MEDS: Insulin Glargine,Human Rec. Analog 100 Units/ML 3 ML Pen SUBCUT SCH (09:32)
[2024-11-26 05:23] LABS: PLATELET COUNT,PLT 115.0 K/uL (130-375); RED BLOOD CELL COUNT 3.07 M/uL (3.77-5.24); WHITE BLOOD CELL COUNT,WBC 6.7 K/uL (3.2-11.0)
[2024-11-26 05:40] LABS: BLOOD UREA NITROGEN,BUN 15.0 mg/dL (7-18); CARBON DIOXIDE,CO2 27.0 mmol/L (21-32); CHLORIDE,CL 109.0 mmol/L (100-108); CREATININE 1.3 mg/dL (0.6-1.0); EST CRCL DRUG DOSING (CG) 24.74 mL/min; ESTIMATED GFR 40.0 mL/min (>60); GLUCOSE RANDOM 106.0 mg/dL (74-106); POTASSIUM,K 4.0 mmol/L (3.6-5.2); SODIUM,NA 140.0 mmol/L (140-148)
[2024-11-27 05:28] LABS: PLATELET COUNT,PLT 119.0 K/uL (130-375); RED BLOOD CELL COUNT 3.0 M/uL (3.77-5.24); WHITE BLOOD CELL COUNT,WBC 6.0 K/uL (3.2-11.0)
[2024-11-27] MEDS ORDERED: Gadoteridol 279.3 MG/ML 20 ML SDV IV SCH (10:15)
[2024-11-27] MEDS: Insulin Glargine,Human Rec. Analog 100 Units/ML 3 ML Pen SUBCUT SCH (11:00)
[2024-11-27] MEDS: Sodium Chloride 0.9% 10 ML Syringe FLUSH ONE (13:17)
[2024-11-27] MEDS: Iopamidol 612 MG/ML 100 ML Bottle IV SCH (13:17)
== END 2024-11-28 13:30 | disposition home or self-care (01) | DRG 872 ==
LOC: JP.ED 22:51 → JP.MS 11-22 12:01
PROVIDERS: ADMIT Internal Medicine; ATTEND Internal Medicine
PROC: 30233N1 Transfusion of Nonautologous Red Blood Cells into Peripheral Vein, Percutaneous Approach (ICD-10-PCS; principal; 2024-11-21)
PROC: 3E03329 Introduction of Other Anti-infective into Peripheral Vein, Percutaneous Approach (ICD-10-PCS; principal; 2024-11-21)
DX: I95.9 Hypotension, unspecified (principal); A41.9 Sepsis, unspecified organism; I48.91 Unspecified atrial fibrillation; N30.00 Acute cystitis without hematuria; E11.9 Type 2 diabetes mellitus without complications; E11.22 Type 2 diabetes mellitus with diabetic chronic kidney disease; N18.32 Chronic kidney disease, stage 3b; Z90.710 Acquired absence of both cervix and uterus; I48.0 Paroxysmal atrial fibrillation; Z88.0 Allergy status to penicillin; Z88.2 Allergy status to sulfonamides; Z91.048 Other nonmedicinal substance allergy status; Z79.01 Long term (current) use of anticoagulants; D64.9 Anemia, unspecified; E86.0 Dehydration; H54.7 Unspecified visual loss; E78.00 Pure hypercholesterolemia, unspecified; M10.9 Gout, unspecified; E66.9 Obesity, unspecified; Z68.35 Body mass index [BMI] 35.0-35.9, adult; Z90.49 Acquired absence of other specified parts of digestive tract; Z79.899 Other long term (current) drug therapy; Z79.4 Long term (current) use of insulin; Z98.890 Other specified postprocedural states
CPT/HCPCS: 36415 ×2; 71260; 74177; 80053; 81001; 83605 ×3; 83690; 83735; 84484; 85025; 87040 ×2; 87086; 87088; 87186; 93005; 96361 ×2; 96365 ×2; 96366; 96375; 99285; A9270; J0696; J2405; J7030 ×5; Q9967; 36430; 74178; 74178-26; 74181-26; 80048; 85027; 86140; 86850; 86870; 86900; 86901; 86902; 86920; 86922; 93010; 97110-GP; 97116-GP; 97161-GP; 97530-GP; 99223; 99232; 99238; J0780; J1815-GY; J3475; P9016; Q0162

== ENCOUNTER 2025-01-04 02:04 | Emergency (ER) | payer MEDICARE ==
[2025-01-04 02:32] LABS: BASOPHILS ABSOLUTE AUTO 0.07 K/uL (0.00-0.10); BASOPHILS PERCENT AUTO 0.9 % (0.1-1.3); EOSINOPHILS ABSOLUTE AUTO 0.42 K/uL (0.00-0.40); EOSINOPHILS PERCENT AUTO 5.2 % (0.0-5.4); IMMATURE GRAN ABSOLUTE AUTO 0.04 K/uL (0.00-0.23); IMMATURE GRAN PERCENT AUTO 0.5 % (0.0-0.7); LYMPHOCYTES ABSOLUTE AUTO 1.50 K/uL (0.8-3.3); LYMPHOCYTES PERCENT AUTO 18.7 % (11.4-47.7); MONOCYTES ABSOLUTE AUTO 0.71 K/uL (0.20-0.90); MONOCYTES PERCENT AUTO 8.9 % (3.3-12.6); NEUTROPHILS ABSOLUTE AUTO 5.28 K/uL (1.0-7.6); NEUTROPHILS PERCENT AUTO 65.8 % (40.0-78.1); PLATELET COUNT,PLT 168 K/uL (130-375); WHITE BLOOD CELL COUNT,WBC 8.0 K/uL (3.2-11.0)
[2025-01-04 02:57] LABS: LACTIC ACID 2.9 mmol/L (0.4-2.0); RED BLOOD CELL COUNT 2.61 M/uL (3.77-5.24)
[2025-01-04 03:02] LABS: A/G RATIO 0.9 (1.2-2.2); ALANINE AMINOTRANSFERASE,ALT 14 U/L (12-78); ASPARTATE AMNIOTRANSFERASE,AST 17 U/L (15-37); BILIRUBIN TOTAL 0.4 mg/dL (0.2-1.0); BLOOD UREA NITROGEN,BUN 24 mg/dL (7-18); CARBON DIOXIDE,CO2 27 mmol/L (21-32); CHLORIDE,CL 104 mmol/L (100-108); CREATININE 1.9 mg/dL (0.6-1.0); EST CRCL DRUG DOSING (CG) 16.19 mL/min; ESTIMATED GFR 25 mL/min (>60); GLUCOSE RANDOM 318 mg/dL (74-106); POTASSIUM,K 3.7 mmol/L (3.6-5.2); PROTEIN TOTAL,TP 5.5 g/dL (6.4-8.2); SODIUM,NA 141 mmol/L (140-148)
[2025-01-04] MEDS: Bacitracin/Polymyxin B Ophth Oint 3.5 GM Tube EYERT ONE (03:18)
[2025-01-04] MEDS: Magnesium Sulfate 2 GM/50 mL 2 GM in Premix Bag 1 BAG IV ONE (03:39)
[2025-01-04 04:03] LABS: APPEARANCE,URINE CLOUDY (CLEAR); GLUCOSE,URINE NEGATIVE (NEGATIVE); OCCULT BLOOD,URINE NEGATIVE (NEGATIVE)
[2025-01-04 04:16] LABS: SQUAMOUS EPITHELIAL CELLS,UR RARE /HPF; UROTHELIAL CELLS,URINE NOT SEEN /HPF
[2025-01-04] MEDS: Levofloxacin/Dextrose 5%-Water 750 MG in Premix Bag 1 BAG IV ONE (06:29)
[2025-01-04 06:44] LABS: LACTIC ACID 1.9 mmol/L (0.4-2.0)
== END 2025-01-04 08:28 | disposition other institution (70) ==
LOC: JP.ED 02:04
DX: K92.2 Gastrointestinal hemorrhage, unspecified (principal); I48.91 Unspecified atrial fibrillation; E78.00 Pure hypercholesterolemia, unspecified; E11.9 Type 2 diabetes mellitus without complications; E66.9 Obesity, unspecified; Z90.49 Acquired absence of other specified parts of digestive tract; Z90.710 Acquired absence of both cervix and uterus; Z88.0 Allergy status to penicillin; Z88.2 Allergy status to sulfonamides; Z91.048 Other nonmedicinal substance allergy status; Z79.82 Long term (current) use of aspirin; Z79.01 Long term (current) use of anticoagulants; Z79.4 Long term (current) use of insulin; Z79.899 Other long term (current) drug therapy; Z68.35 Body mass index [BMI] 35.0-35.9, adult
CPT/HCPCS: 36415; 80053; 81001; 83605; 83735; 84484; 85025; 86850; 86870; 86900; 86901; 86902; 87040; 87086; 87088; 87186; 93005; 96361; 96365; 96366; 96367; 96375; 99285; A9270; J1956; J2470; J2550; J3475; J7030

== ENCOUNTER 2025-02-12 00:58 | Emergency (ER) | payer MEDICARE ==
[2025-02-12 01:38] LABS: BASOPHILS ABSOLUTE AUTO 0.07 K/uL (0.00-0.10); BASOPHILS PERCENT AUTO 0.5 % (0.1-1.3); EOSINOPHILS ABSOLUTE AUTO 0.15 K/uL (0.00-0.40); EOSINOPHILS PERCENT AUTO 1.1 % (0.0-5.4); IMMATURE GRAN ABSOLUTE AUTO 0.11 K/uL (0.00-0.23); IMMATURE GRAN PERCENT AUTO 0.8 % (0.0-0.7); LYMPHOCYTES ABSOLUTE AUTO 1.24 K/uL (0.8-3.3); LYMPHOCYTES PERCENT AUTO 8.8 % (11.4-47.7); MONOCYTES ABSOLUTE AUTO 0.92 K/uL (0.20-0.90); MONOCYTES PERCENT AUTO 6.5 % (3.3-12.6); NEUTROPHILS ABSOLUTE AUTO 11.62 K/uL (1.0-7.6); NEUTROPHILS PERCENT AUTO 82.3 % (40.0-78.1); PLATELET COUNT,PLT 164 K/uL (130-375); RED BLOOD CELL COUNT 3.40 M/uL (3.77-5.24); WHITE BLOOD CELL COUNT,WBC 14.1 K/uL (3.2-11.0)
[2025-02-12 01:56] LABS: A/G RATIO 0.6 (1.2-2.2); ALANINE AMINOTRANSFERASE,ALT 16 U/L (12-78); ASPARTATE AMNIOTRANSFERASE,AST 21 U/L (15-37); BILIRUBIN TOTAL 0.6 mg/dL (0.2-1.0); BLOOD UREA NITROGEN,BUN 21 mg/dL (7-18); CARBON DIOXIDE,CO2 26 mmol/L (21-32); CHLORIDE,CL 96 mmol/L (100-108); CREATININE 1.9 mg/dL (0.6-1.0); ESTIMATED GFR 25 mL/min (>60); GLUCOSE RANDOM 327 mg/dL (74-106); POTASSIUM,K 3.9 mmol/L (3.6-5.2); PROTEIN TOTAL,TP 5.8 g/dL (6.4-8.2); SODIUM,NA 134 mmol/L (140-148)
[2025-02-12] MEDS: Diltiazem 25 MG/5 ML SDV IVPUSH ONE (02:55)
[2025-02-12] MEDS: Clindamycin in 0.9 % Sod Chlor 900 MG in Premix Bag 1 BAG IV ONE (03:01)
[2025-02-12] MEDS: Norepinephrine Bit/D5W Premix 4 MG/250 ML BAG IV SCH (03:19)
[2025-02-12] MEDS: Levofloxacin/Dextrose 5%-Water 500 MG in Premix Bag 1 BAG IV ONE (03:40)
[2025-02-12] MEDS: methylPREDNISolone Sodium Succinate 125 MG/2 ML SDV IVPUSH ONE (03:43)
[2025-02-12] MEDS: Levofloxacin/Dextrose 5%-Water 250 MG in Premix Bag 1 BAG IV ONE (05:59)
[2025-02-12 07:55] LABS: APPEARANCE,URINE CLEAR (CLEAR); GLUCOSE,URINE NEGATIVE (NEGATIVE); OCCULT BLOOD,URINE MODERATE (NEGATIVE)
[2025-02-12 08:20] LABS: SQUAMOUS EPITHELIAL CELLS,UR MANY /HPF
== END 2025-02-12 13:15 ==
LOC: JP.ED 00:58
DX: A41.9 Sepsis, unspecified organism (principal); I48.91 Unspecified atrial fibrillation; I95.9 Hypotension, unspecified; E78.00 Pure hypercholesterolemia, unspecified; E11.9 Type 2 diabetes mellitus without complications; E66.9 Obesity, unspecified; Z90.710 Acquired absence of both cervix and uterus; Z68.33 Body mass index [BMI] 33.0-33.9, adult; Z79.899 Other long term (current) drug therapy; Z79.01 Long term (current) use of anticoagulants; Z79.4 Long term (current) use of insulin; Z88.0 Allergy status to penicillin; Z88.2 Allergy status to sulfonamides; Z91.048 Other nonmedicinal substance allergy status
CPT/HCPCS: 36410; 36415; 71045; 80053; 81001; 83605; 83880; 84484; 85025; 93005; 93010; 94640; 96361; 96365; 96366; 96367; 96375; 99291; 99292; A9270; J1163; J1956; J7030; J0737; J2919